=== PATIENT | male | born 1950 | race Caucasian/White ===

== ENCOUNTER → 2017-04-03 | Outpatient (CLI) | payer OTHER, BC ==
[~2017-04-03] MED LIST: OPTIRAY 320 IV PRN
--- NOTE | 2017-04-03 08:25 | DIAGNOSTIC IMAGING REPORT ---
ABD/PELVIS COMBO HISTORY: 67 years-old Male N28.1 Renal cyst, acquired COMPARISON: None available TECHNIQUE: Multiple axial CT images of the abdomen and pelvis were obtained both with and without the use of 119 mL Optiray 320 IV contrast utilizing renal mass protocol. A dose lowering technique was used consistent with the principals of [facility]AC[facility]. FINDINGS: There is mild dependent subsegmental bibasilar atelectasis. There is no pneumatosis or pneumoperitoneum. Imaged inferior cardiac chambers are unremarkable. Hepatic steatosis. The spleen is mildly enlarged, 13 cm. Pancreas, gallbladder and adrenal glands are within normal limits. No intrahepatic biliary ductal dilation. No focal hepatic mass lesions identified. No renal calculi identified on the noncontrast scan. There are low attenuating subcentimeter parenchymal lesions of the left kidney measuring up to 4 mm without enhancement suggesting cysts. There are multiple renal sinus cyst of the left which appear to be peripelvic in origin, largest of which measures up to 4.1 x 2.4 cm causing mild narrowing of the adjacent collecting system and renal pelvis. No associated hydronephrosis or collecting system filling defects. Areas of nonopacification are present within the mid ureters bilaterally. Ureters are otherwise unremarkable without wall thickening or focal collecting filling defects. Small renal sinus cysts are seen on the right measuring up to 1.1 x 0.6 cm. The bladder demonstrates mild wall trabeculation. Prostate is mildly enlarged measuring up to 4.9 x 3.5 cm. Aorta is normal in course and caliber. No bulky adenopathy. There is no bowel obstruction or focal bowel wall thickening identified. Mild colonic diverticulosis without diverticulitis. Appendix appears normal. There is mild nonspecific stranding of the mid mesentery as seen on image 255 series 7 with scattered nonenlarged mesenteric lymph nodes. Soft tissues are unremarkable. Remote pars defects at L5 with grade 1 anterolisthesis L5 on S1. IMPRESSION: 1. Multiple bilateral renal sinus cysts, left greater than right are noted measuring up to 4.1 cm, likely peripelvic in origin. No abnormal enhancement or suspicious renal mass lesions identified. 2. No renal calculi or hydronephrosis. 3. Prostamegaly with evidence of chronic bladder outlet obstruction. 4. Mild colonic diverticulosis without diverticulitis. 5. 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 6. Hepatic steatosis. The above report was generated using voice recognition software. It may contain grammatical, syntax or spelling errors. Electronically signed by: Rudy Daigle M.D. 04/03/2017 8:24 AM Dictated Date/Time: 04/03/2017 8:12 AM
== END | disposition home or self-care (01) ==
LOC: C.CTS 07:41
PROVIDERS: ATTEND Urology
DX: N28.1 Cyst of kidney, acquired (principal); N40.0 Benign prostatic hyperplasia without lower urinary tract symptoms; K76.0 Fatty (change of) liver, not elsewhere classified